=== PATIENT | female | born 1960 | race Caucasian/White ===

== ENCOUNTER 2023-07-09 07:46 | Day surgery (SDC) | payer BC ==
[2023-07-04 17:25] VITALS: BMI 26.9
[2023-07-09 09:26] VITALS: RESP 18; TEMP 97.4
[2023-07-09 09:52] VITALS: BP 120/68; PULSE 70
== END 2023-07-09 10:25 | disposition home or self-care (01) ==
LOC: FASU-ENDO 07:46
PROVIDERS: ATTEND Internal Medicine Gastroenterology
PROC: 0DJD8ZZ Inspection of Lower Intestinal Tract, Via Natural or Artificial Opening Endoscopic (ICD-10-PCS; principal; 2023-07-09 09:02)
DX: Z12.11 Encounter for screening for malignant neoplasm of colon (principal); K57.30 Diverticulosis of large intestine without perforation or abscess without bleeding; Z86.010 Personal history of colon polyps